=== PATIENT | male | born 1965 | race Caucasian/White ===

== ENCOUNTER 2016-07-29 17:50 | Emergency (ER) | payer OTHER ==
[2016-07-29 18:03] VITALS: BP 130/90; PULSE 73; TEMP 97.8; BMI 31.7
--- NOTE | 2016-07-29 19:09 | PDOC ---
History of Present Illness - General History Source: Patient Exam Limitations: No Limitations - History of Present Illness Initial Comments: 07/29/16 19:23 The patient is a 51 year old male, with a significant past medical history of HTN, who presents to the emergency department with cough, congestion, and fever (last known was 101.5) for about 3 weeks. He reports his cough is productive and is bringing up white phlegm. He reports going to his PCP, Ministerio, about 2- 3 weeks ago, and was prescribed zithromax for 7 days with initial alleviation of his symptoms. He reports after finishing his course of medication is symptoms gradually worsened over the past couple of weeks. He reports now also having mid back pain when takes deep breaths. He reports taking Advil (400mg) about an hour ago with mild alleviation of his symptoms. He denies headache and dizziness. He denies nausea, vomit, diarrhea and constipation. PAST SURGICAL HISTORY: No significant history. FAMILY HISTORY: No pertinent history. SOCIAL HISTORY: Patient lives with family and is employed. MEDICATIONS: Reviewed. ALLERGIES: As per nursing notes. ROS General: Yes fevers, no weakness, no weight loss HEENT: No change in vision. No sore throat,. No ear pain CardioVascular: No chest pain or shortness of breath Respiratory:Yes cough, No wheezing. Gastrointestinal: No nausea, vomiting, diarrhea or constipation. No rectal bleeding Genitourinary: No dysuria, hematuria, or frequency Musculoskeletal: Yes: Back pain. No joint or muscle pain or swelling Neurologic: No headache, vertigo, dizziness or loss of consciousness Psychiatric: No depression Skin: No rashes or easy bruising Endocrine: no increased thirst or abnormal weight change Allergic: no skin or latex allergy All other systems reviewed and normal Exam: General: Well-nourished well-developed individual, no acute distress HEENT: Throat: Tenderness to percussion over the maxillary sinuses. No tenderness over the frontal sinuses. Normal, tonsils normal, no erythema or exudate Neck: Supple, no meningeal signs, no lymphadenopathy Eyes: Pupils equal reactive and round, extraocular motion intact Chest: Nontender to palpation Cardiac: S1-S2 normal, regular rate and rhythm, no murmurs rubs or gallops Respiratory: Coarse breath sounds mid left sided chest posteriorly. Abdomen: Soft, nondistended, normal bowel sounds, nontender to palpation diffusely Extremities: Warm, dry, no cyanosis, clubbing, or edema Skin: No rashes Neuro: Alert and oriented x3, nonfocal exam, grossly intact, normal gait Psych: Normal mood and affect <Uriel Winkler - Last Filed: 07/29/16 20:26> - General History Source: Patient Exam Limitations: No Limitations - History of Present Illness Initial Comments: 07/29/16 20:12 A portion of this note was documented by scribe services under my direction. I have reviewed the details of the note, within reason, and agree with the documentation. The case summary and management plan written by me. Assessment and plan: This is a 51-year-old male who comes in complaining of approximately 3 weeks of sinus congestion and cough. Patient was given a Z-Keegan 2 weeks ago with some improvement in symptoms but sinus congestion and pain has persisted. Patient also complaining of fevers. Patient has appointment with his ENT doctor for tomorrow. Patient had a chest x-ray that was negative for any acute pathology infiltrate. Patient was given Zosyn for a presumptive sinusitis. Patient will follow-up with his ENT doctor tomorrow and patient was discharged. <Beltran Siddiqi I - Last Filed: 07/29/16 20:53> - General Chief Complaint: Respiratory Stated Complaint: COUGH & FEVER Time Seen by Provider: 07/29/16 17:59 Past History <Uriel Winkler - Last Filed: 07/29/16 20:26> - Past Medical History HTN: Yes - Psycho/Social/Smoking Cessation Hx Anxiety: No Suicidal Ideation: No Smoking Status: No Smoking History: Never smoked Have you smoked in the past 12 months: No Number of Cigarettes Smoked Daily: 0 Hx Alcohol Use: No Drug/Substance Use Hx: No Substance Use Type: None <Beltran Siddiqi I - Last Filed: 07/29/16 20:53> - Past Medical History Allergies/Adverse Reactions: Allergies Allergy/AdvReac Type Severity Reaction Status Date / Time amoxicillin trihydrate Allergy Mild Hives Verified 01/23/15 09:38 [From Augmentin] doxycycline Allergy Mild Hives Verified 07/29/16 18:03 potassium clavulanate Allergy Mild Hives Verified 01/23/15 09:38 [From Augmentin] levofloxacin [From Levaquin] AdvReac Verified 07/28/15 08:45 Home Medications: Ambulatory Orders Aspirin [ASA -] 81 mg PO DAILY 05/26/12 Verapamil HCl ER [Calan Sr -] 120 mg PO BID 05/26/12 *Physical Exam - Vital Signs Last Vital Signs Temp Pulse Resp BP Pulse Ox 97.8 F 73 16 130/90 97 07/29/16 17:58 07/29/16 17:58 07/29/16 17:58 07/29/16 17:58 07/29/16 17:58 <Uriel Winkler - Last Filed: 07/29/16 20:26> - Vital Signs Last Vital Signs Temp Pulse Resp BP Pulse Ox 97.8 F 73 16 130/90 97 07/29/16 17:58 07/29/16 17:58 07/29/16 17:58 07/29/16 17:58 07/29/16 17:58 <Beltran Siddiqi I - Last Filed: 07/29/16 20:53> ED Treatment Course - LABORATORY CBC & Chemistry Diagram: 07/29/16 19:40 07/29/16 19:40 <Uriel Winkler - Last Filed: 07/29/16 20:26> - LABORATORY CBC & Chemistry Diagram: 07/29/16 19:40 07/29/16 19:40 <Beltran Siddiqi I - Last Filed: 07/29/16 20:53> *DC/Admit/Observation/Transfer - Attestations Scribe Attestion: 07/29/16 19:20 Documentation prepared by Uriel Winkler, acting as registered medical assistant for Beltran Siddiqi MD. <Uriel Winkler - Last Filed: 07/29/16 20:26> - Discharge Dispostion Admit: No <Beltran Siddiqi I - Last Filed: 07/29/16 20:53> Diagnosis at time of Disposition: Sinusitis Qualifiers: Sinusitis location: maxillary Chronicity: acute Recurrence: recurrent Qualified Code(s): J01.01 - Acute recurrent maxillary sinusitis - Discharge Dispostion Disposition: HOME Condition at time of disposition: Good - Referrals Referrals: Efra Mandel MD [Primary Care Provider] - - Patient Instructions Additional Instructions: You were given a dose of Zosyn in the emergency room for your sinusitis/sinus infection. It is important that you keep your appointment with your ENT tomorrow when you see her ENT tomorrow tell him that you're given Zosyn and the I will let him determine what antibiotic he wants you to continue to take. Return to the emergency department immediately with ANY new, persistent or worsening symptoms. Continue any medications as previously prescribed by your physician. You should follow up with your primary doctor as soon as possible regarding today's emergency department visit. . Please make sure your doctor reviews the results of your emergency evaluation. Thank you for coming to the Emergency Department today for your care. It was a pleasure to see you today. Please note that your evaluation is INCOMPLETE until you follow-up with your doctor.
[2016-07-29] MEDS ORDERED: SODIUM CHLORIDE 1,000 ML IV ONE (19:46)
[2016-07-29] MEDS ORDERED: PIPERACILLIN/TAZOBACTAM 4.5 GM VIAL IVPB ONE (19:49)
[2016-07-29 19:55] LABS: BASOPHIL 0.6 % (0-2.0); EOSINOPHIL 6.4 % (0-4.5); MCH 27.2 pg (25.7-33.7); MEAN CELL VOLUME 82.6 fl (80-96); MEAN PLT VOLUME 8.2 fl (7.5-11.1); NEUTROPHILS 58.9 % (42.8-82.8); PLATELET COUNT 265 K/MM3 (134-434); RDW 13.6 % (11.9-15.9); WHITE BLOOD COUNT 4.1 K/mm3 (4.0-10.0)
[2016-07-29] MEDS ORDERED: PIPERACILLIN/TAZOB 4.5 GM 4.5 GM in DEXTROSE 5%-WATER - 100 ML IVPB ONE (20:21)
[2016-07-29 21:27] LABS: ANION GAP 10 (8-16); CALCIUM 8.2 mg/dL (8.5-10.1); CO2 26 mmol/L (21-32); CREATININE 0.7 mg/dL (0.7-1.3); GLUCOSE,RANDOM 86 mg/dL (74-106); SGOT/AST 12 U/L (15-37); SGPT/ALT 32 U/L (12-78)
[2016-07-29 21:28] LABS: ALK PHOS 83 U/L (45-117); BILIRUBIN,TOTAL 0.3 mg/dL (0.2-1.0)
== END 2016-07-29 21:17 | disposition home or self-care (01) ==
LOC: FER 17:50
PROC: 3E03329 Introduction of Other Anti-infective into Peripheral Vein, Percutaneous Approach (ICD-10-PCS; principal; 2016-07-29)
PROC: 3E0337Z Introduction of Electrolytic and Water Balance Substance into Peripheral Vein, Percutaneous Approach (ICD-10-PCS; 2016-07-29)
DX: J01.01 Acute recurrent maxillary sinusitis (principal); I10 Essential (primary) hypertension; Z79.82 Long term (current) use of aspirin
CPT/HCPCS: 36415; 71020-TC; 80053; 85025; 87040; 99282-25

== ENCOUNTER 2016-11-30 17:20 | Emergency (ER) | payer OTHER ==
[2016-11-30 17:29] VITALS: BP 144/96; PULSE 79; TEMP 97.8; BMI 34.0
--- NOTE | 2016-11-30 18:00 | PDOC ---
History of Present Illness - General History Source: Patient Exam Limitations: No Limitations - History of Present Illness Initial Comments: 11/30/16 18:35 The patient is a 51 year old male, with a significant past medical history of HTN, who presents to the emergency department with Right leg injury. The patient reports Weds falling through wooden steps on his patio, injuring his right leg. He reports since the injury his right leg has been swollen, bruised, and painful ranking his pain a 6/10 in pain intensity. He denies SOB, cough, hemoptysis, ADKINS and chest pain. No head injury, back pain/injury or other complaints. Allergies: NKA Past surgical history: None reported. Social History: Nonsmoker. Denies EtOH use and recreational drug use. Primary Care Physician: Dr.Louis Mandel <Uriel Winkler - Last Filed: 11/30/16 18:35> <Jagjit Tracy - Last Filed: 11/30/16 19:18> - General Chief Complaint: Injury Stated Complaint: RT LEG INJURY Time Seen by Provider: 11/30/16 17:38 Past History <Uriel Winkler - Last Filed: 11/30/16 18:35> - Past Medical History HTN: Yes - Psycho/Social/Smoking Cessation Hx Anxiety: No Suicidal Ideation: No Smoking Status: No Smoking History: Never smoked Have you smoked in the past 12 months: No Number of Cigarettes Smoked Daily: 0 Information on smoking cessation initiated: No Hx Alcohol Use: No Drug/Substance Use Hx: No Substance Use Type: None <Jagjit Tracy - Last Filed: 11/30/16 19:18> - Past Medical History Allergies/Adverse Reactions: Allergies Allergy/AdvReac Type Severity Reaction Status Date / Time amoxicillin trihydrate Allergy Mild Hives Verified 11/30/16 17:24 [From Augmentin] doxycycline Allergy Mild Hives Verified 11/30/16 17:24 potassium clavulanate Allergy Mild Hives Verified 11/30/16 17:24 [From Augmentin] levofloxacin [From Levaquin] AdvReac Verified 11/30/16 17:24 Home Medications: Ambulatory Orders Aspirin [ASA -] 81 mg PO DAILY 05/26/12 Verapamil HCl ER [Calan Sr -] 120 mg PO BID 05/26/12 Review of Systems - Review of Systems Able to Perform ROS?: Yes Comments:: 11/30/16 18:35 CONSTITUTIONAL: No reported: Fever, Chills, Diaphoresis, Generalized Weakness, Malaise, Loss of Appetite CARDIOVASCULAR: No reported: Chest Pain, Syncope, Palpitations, Irregular Heart Rate, Lightheadedness RESPIRATORY: No reported: Cough, Shortness of Breath, SOB with Exertion, GASTROINTESTINAL: No reported: Abdominal pain, Abdominal Distension, Nausea, Vomiting, Diarrhea, Constipation, Melena, Hematochezia MUSCULOSKELETAL: +Right leg pain and swelling. No reported: Myalgia, Arthralgia, Joint Swelling, Back pain, Neck Pain SKIN: No reported: Rash, Itching, Pallor HEMATOLOGIC/IMMUNOLOGIC: +bruising No reported: Easy Bleeding, Easy Bruising, Lymphadenopathy, Frequent infections NEUROLOGIC: No reported: Headache, Focal Weakness, Paresthesias, Vertigo, Lightheadedness, Unsteady Gait, Seizure, Mental Status Changes, Incontinence PSYCHIATRIC: No reported: Anxiety, Depression <Uriel Winkler - Last Filed: 11/30/16 18:35> *Physical Exam - Vital Signs Last Vital Signs Temp Pulse Resp BP Pulse Ox 97.8 F 79 18 144/96 99 11/30/16 17:20 11/30/16 17:20 11/30/16 17:20 11/30/16 17:20 11/30/16 17:20 - Physical Exam Comments: 11/30/16 18:35 GENERAL: The patient is awake, alert, and fully oriented, Nontoxic - in no acute distress. HEAD: Normocephalic, atraumatic. EYES: extraocular movements intact, sclera anicteric, conjunctiva clear. ENT: Normal voice, Moist mucous membranes. NECK: Normal range of motion, supple LUNGS: Breath sounds equal, clear to auscultation bilaterally. No wheezes, no rhonchi, no rales. HEART: Regular rate and rhythm, normal S1 and S2 without murmur, rub or gallop. ABDOMEN: Soft, nontender, normoactive bowel sounds. No guarding, no rebound. . No CVA tenderness EXTREMITIES: +edema of R calf, mild ecchymosis, mild tendernes to palpatin, neg homans sign, n/v intact, NEUROLOGICAL: No facial assymetry, Normal speech, PSYCH: Normal mood, normal affect. SKIN: Warm, Dry, normal turgor, <Uriel Winkler - Last Filed: 11/30/16 18:35> - Vital Signs Last Vital Signs Temp Pulse Resp BP Pulse Ox 97.8 F 79 18 144/96 99 11/30/16 17:20 11/30/16 17:20 11/30/16 17:20 11/30/16 17:20 11/30/16 17:20 <Jagjit Tracy - Last Filed: 11/30/16 19:18> ED Treatment Course - RADIOLOGY Radiology Studies Ordered: Category Date Time Status DUPLEX VASCUL US-1 LEG [US] Stat Ultrasound 11/30/16 17:59 Ordered <Jagjit Tracy - Last Filed: 11/30/16 19:18> Medical Decision Making - Medical Decision Making 11/30/16 19:16 no fx noted on xray no dvt on US suspect symptoms are contusion/resolving hematoma will dc with pmd fu, if persistent concert, repeat US in a few days return precuations were discussed A portion of this note was documented by scribe services under my direction. I have reviewed the details of the note, within reason, and agree with the documentation with the following case summary and management plan written by me I discussed the physical exam findings, ancillary test results and final diagnoses with the patient. I answered all of the patient's questions. The patient was satisfied with the care received and felt comfortable with the discharge plan and treatment plan. The patient will call their primary care physician within 24 hours to arrange follow-up and will return to the Emergency Department with any new, persistent or worsening symptoms. <Jagjit Tracy - Last Filed: 11/30/16 19:18> *DC/Admit/Observation/Transfer - Attestations Scribe Attestion: 11/30/16 18:36 Documentation prepared by Uriel Winkler, acting as medical accountant for Jagjit Tracy MD. <Uriel Winkler - Last Filed: 11/30/16 18:35> - Discharge Dispostion Admit: No <Jagjit Tracy - Last Filed: 11/30/16 19:18> Diagnosis at time of Disposition: Contusion of leg, right Qualifiers: Encounter type: initial encounter Qualified Code(s): S80.11XA - Contusion of right lower leg, initial encounter - Discharge Dispostion Disposition: HOME Condition at time of disposition: Improved - Referrals Referrals: Efra Mandel MD [Primary Care Provider] - - Patient Instructions Printed Discharge Instructions: DI for Contusion Additional Instructions: Return to the emergency department immediately with ANY new, persistent or worsening symptoms. You MUST call and follow up with your doctor in 5-7 days for further evaluation of your symptoms. Results were discussed with you. Please make sure your doctor reviews the results of your emergency evaluation. If you had any xrays during your visit, it was read preliminarily by myself, a Radiologist will review it and if there are any additional findings we will call you. Print Language: MOSOTHO
== END 2016-11-30 19:25 | disposition home or self-care (01) ==
LOC: FER 17:20
DX: S80.11XA Contusion of right lower leg, initial encounter (principal); W13.8XXA Fall from, out of or through other building or structure, initial encounter; Y93.89 Activity, other specified; Y92.008 Other place in unspecified non-institutional (private) residence as the place of occurrence of the external cause; I10 Essential (primary) hypertension
CPT/HCPCS: 73590-TC-RT; 93971-TC; 99282-25

== ENCOUNTER 2016-12-07 08:56 | Emergency (ER) | payer OTHER ==
[2016-12-07 09:13] VITALS: BP 131/96; PULSE 85; TEMP 97.5; BMI 34.0
--- NOTE | 2016-12-07 09:15 | PDOC ---
History of Present Illness - General Chief Complaint: Wound Stated Complaint: LEFT LEG WOUND Time Seen by Provider: 12/07/16 08:57 History Source: Patient Exam Limitations: No Limitations - History of Present Illness Initial Comments: 12/07/16 09:10 CHIEF COMPLAINT: Right leg injury with open wound HISTORY OF PRESENT ILLNESS: This is a 51-year-old man whose right leg went down between slats of a deck approximately 2 weeks ago. His right thigh knee and lower leg were all ecchymotic and swollen. The ecchymosis has now resolved, but he has a residual open area just below the right knee on the medial surface of the leg. The skin is open with some clear serous drainage. There is some small area of surrounding redness. The patient states that he put ice packs on the area directly on the skin with a wrap around it. This was the worst area of the injury. The ecchymosis has resolved. The localized redness is going down slowly. He applied Neosporin ointment to the area. REVIEW OF SYSTEMS: No fever or chills No red streaking up the leg No history of abnormal circulation Past History - Past Medical History Allergies/Adverse Reactions: Allergies Allergy/AdvReac Type Severity Reaction Status Date / Time amoxicillin trihydrate Allergy Mild Hives Verified 12/07/16 09:08 [From Augmentin] doxycycline Allergy Mild Hives Verified 12/07/16 09:08 potassium clavulanate Allergy Mild Hives Verified 12/07/16 09:08 [From Augmentin] levofloxacin [From Levaquin] AdvReac STOMACH Verified 12/07/16 09:08 UPSET Home Medications: Ambulatory Orders Aspirin [ASA -] 81 mg PO DAILY 05/26/12 Verapamil HCl ER [Calan Sr -] 120 mg PO BID 05/26/12 Sulfamethoxazole/Trimethoprim [Bactrim Ds -] 1 tab PO BID #14 tablet 12/07/16 Diabetes: No HTN: Yes - Psycho/Social/Smoking Cessation Hx Anxiety: No Suicidal Ideation: No Smoking Status: No Smoking History: Never smoked Have you smoked in the past 12 months: No Number of Cigarettes Smoked Daily: 0 Information on smoking cessation initiated: No Hx Alcohol Use: No Drug/Substance Use Hx: No Substance Use Type: None *Physical Exam - Vital Signs Last Vital Signs Temp Pulse Resp BP Pulse Ox 97.5 F L 85 20 131/96 98 12/07/16 08:56 12/07/16 08:56 12/07/16 08:56 12/07/16 08:56 12/07/16 08:56 - Physical Exam Comments: 12/07/16 09:11 GENERAL: [The patient is awake, alert, and fully oriented, in no acute distress. ] HEAD: [Normal with no signs of trauma.] EYES: [Pupils equal, round and reactive to light, extraocular movements intact, sclera anicteric, conjunctiva clear.] EXTREMITIES: [Normal range of motion, no edema.] NEUROLOGICAL: [Normal speech, normal gait.] PSYCH: [Normal mood, normal affect.] SKIN: There is a 4 cm area on the medial right lower leg just below the knee with superficial skin sloughing surrounded by localized erythema. There is slight induration. There is no fluctuance. There is no increased warmth. Medical Decision Making - Medical Decision Making 12/07/16 09:13 Patient presents with a 2 week old injury to the right leg. He had extensive ecchymosis and bruising which has now resolved. He had applied ice packs locally to the worst area, which now has localized erythema and a superficial area of skin sloughing. The discharge from the area is clear serous drainage. The differential diagnosis includes possible low-grade cellulitis, however, the most likely explanation is skin injury from direct application of ice packs to the area. The clear serous drainage without purulence goes against any significant infection. The slight induration without fluctuance is not suggestive of an abscess. The patient has history of sensitivity to multiple antibiotics with hives. While an antibiotic could be given, this does not appear to be a significant infection, and more likely a cold-induced skin injury from ice packs. I have advised him to apply topical bacitracin twice daily and do dressing changes. I have prescribed Bactrim twice a day, but advised him to hold off on starting it for 2-3 days and to avoid starting it if the area continues to improve with local bacitracin application. Patient further advised to return if he has fevers or increasing signs of infection with spreading redness or pain. He was advised of the options for treatment and is in agreement with the plan. *DC/Admit/Observation/Transfer Diagnosis at time of Disposition: Right leg injury Qualifiers: Encounter type: initial encounter Qualified Code(s): S89.91XA - Unspecified injury of right lower leg, initial encounter - Discharge Dispostion Disposition: HOME Condition at time of disposition: Stable Admit: No - Prescriptions Prescriptions: Sulfamethoxazole/Trimethoprim [Bactrim Ds -] 1 tab PO BID #14 tablet - Patient Instructions Additional Instructions: Today you were evaluated for an open wound on your right leg. There is no sign of a serious infection given that the drainage from the open area is clear. You are advised to wash the area with soap and water in the shower, rinse it well with clean water, dry it with a towel, apply a thin layer of bacitracin and then cover it with gauze and an bandage. Observe for the next 2-3 days for improvement. If the wound continues to improve, you should only use the bacitracin ointment twice daily with dressing changes. If there is any increase in redness or swelling, you can start the prescription for the Bactrim twice daily. Follow-up with your primary care physician in a few days if the wound is not healing. Return to the emergency department for any severe or progressive symptoms, including fever, progressive size of the reddened area, or green discharge from the wound.
== END 2016-12-07 09:29 | disposition home or self-care (01) ==
LOC: FER 08:56
DX: S89.91XD Unspecified injury of right lower leg, subsequent encounter (principal); W13.0XXD Fall from, out of or through balcony, subsequent encounter; Y93.89 Activity, other specified; Y92.096 Garden or yard of other non-institutional residence as the place of occurrence of the external cause
CPT/HCPCS: 99282-25

== ENCOUNTER 2017-04-10 09:06 | Emergency (ER) | payer OTHER ==
[2017-04-10 09:33] VITALS: BP 146/97; PULSE 90; TEMP 98.4; BMI 35.2
[2017-04-10] MEDS ORDERED: metroNIDAZOLE 250 MG TABLET PO ONE (09:34)
[2017-04-10] MEDS ORDERED: SULFAMETHOXAZOLE/TRIMETHOPRIM 800MG/160MG D.S. TABLET PO ONE (09:34)
--- NOTE | 2017-04-10 09:34 | PDOC ---
History of Present Illness - General Chief Complaint: Revisit,Wound Recheck Stated Complaint: WOUND CHECK RIGHT HAND CAT BITE Time Seen by Provider: 04/10/17 09:13 - History of Present Illness Initial Comments: 04/10/17 09:28 52 M with h/o HTN presents to ER for subjective chills and fevers after suffering cat bite to R hand 4 days ago. Pt states that he went to urgent care the day after he suffered the cat bite because his hand had become very swollen and painful. He was started on Cefdin, which he has been taking. The swelling and pain have subsided significantly over the past 3 days. However, pt states that last night he began to have subjective fevers, chills, and nausea. Pt took his temperature and states that it was 99.0. Pt otherwise states that his hand feels almost back to baseline, with only mild residual swelling and discomfort. He denies any spreading redness, denies worsening swelling or limitation in range of motion of fingers or wrist. Pt received a tetanus shot at urgent care. Pt states cat is his own, has had all its shots, and has not exhibited any strange or aggressive behavior. He filled out the required paperwork for animal bite on initial visit to urgent care. Also took cat to vet yesterday and had it evaluated. Past History - Past Medical History Allergies/Adverse Reactions: Allergies Allergy/AdvReac Type Severity Reaction Status Date / Time amoxicillin trihydrate Allergy Mild Hives Verified 12/07/16 09:08 [From Augmentin] doxycycline Allergy Mild Hives Verified 12/07/16 09:08 potassium clavulanate Allergy Mild Hives Verified 12/07/16 09:08 [From Augmentin] levofloxacin [From Levaquin] AdvReac STOMACH Verified 12/07/16 09:08 UPSET Home Medications: Ambulatory Orders Aspirin [ASA -] 81 mg PO DAILY 05/26/12 Verapamil HCl ER [Calan Sr -] 120 mg PO BID 05/26/12 Cefuroxime Axetil [Ceftin -] 500 mg PO Q12H 04/10/17 Metronidazole [Flagyl -] 500 mg PO TID #15 tablet 04/10/17 Sulfamethoxazole/Trimethoprim [Bactrim Ds -] 1 tab PO BID #10 tablet 04/10/17 Diabetes: No HTN: Yes - Immunization History TDAP Vaccination: Yes (04/07/2017) - Suicide/Smoking/Psychosocial Hx Smoking Status: No Smoking History: Never smoked Have you smoked in the past 12 months: No Number of Cigarettes Smoked Daily: 0 Hx Alcohol Use: No Drug/Substance Use Hx: No Substance Use Type: None Review of Systems - Review of Systems Comments:: 04/10/17 09:35 "GENERAL/CONSTITUTIONAL: + fever and chills. No weakness. HEAD, EYES, EARS, NOSE AND THROAT: No change in vision. No ear pain or discharge. No sore throat. CARDIOVASCULAR: No chest pain or shortness of breath. RESPIRATORY: No cough, wheezing, or hemoptysis. GASTROINTESTINAL: No nausea, vomiting, diarrhea or constipation. GENITOURINARY: No dysuria, frequency, or change in urination. MUSCULOSKELETAL: + Mild hand swelling and pain. No neck or back pain. SKIN: No rash NEUROLOGIC: No headache, vertigo, loss of consciousness, or change in strength/ sensation. ENDOCRINE: No increased thirst. No abnormal weight change. HEMATOLOGIC/LYMPHATIC: No anemia, easy bleeding, or history of blood clots. ALLERGIC/IMMUNOLOGIC: No hives or skin allergy. " *Physical Exam - Vital Signs Last Vital Signs Temp Pulse Resp BP Pulse Ox 98.4 F 90 15 146/97 97 04/10/17 09:12 04/10/17 09:12 04/10/17 09:12 04/10/17 09:12 04/10/17 09:12 - Physical Exam Comments: 04/10/17 09:36 "GENERAL: Awake, alert, and fully oriented, in no acute distress HEAD: No signs of trauma EYES: PERRLA, EOMI, sclera anicteric, conjunctiva clear ENT: Auricles normal inspection, hearing grossly normal, nares patent, oropharynx clear without exudates. Moist mucosa NECK: Nontender, no stepoffs, Normal ROM, supple, no lymphadenopathy, JVD, or masses LUNGS: Breath sounds equal, clear to auscultation bilaterally. No wheezes, and no crackles HEART: Regular rate and rhythm, normal S1 and S2, no murmurs, rubs or gallops ABDOMEN: Soft, nontender, normoactive bowel sounds. No guarding, no rebound. No masses NEUROLOGICAL: Cranial nerves II through XII intact. 5/5 strength and sensation in all extremities, Normal speech, normal gait EXTREMITIES: R hand with 2 small puncture wounds that are well healing, NO notable erythema, mild diffuse edema of hand extending to wrist. NORMAL active and passive range of motion of all digits, no pain with passive extension of flexor tendons, no signs of cellulitis ED Treatment Course - LABORATORY CBC & Chemistry Diagram: 04/10/17 09:35 04/10/17 09:35 Medical Decision Making - Medical Decision Making 04/10/17 09:38 52 M with fevers and chills after suffering cat bite to R hand 4 days ago. Hand appears to be healing well, with no signs of active infection. NO evidence of flexor tenosynovitis, no signs of cellulitis. Pt with mild edema to hand that he reports is improving. Pt with no regional lymphadenopathy to suggest cat scratch fever. There are no significant signs of local or systemic infection on exam. However, given subjective fevers and chills, pt may potentially be bacteremic. Given that pt has been on cefdin for 4 days and is still experiencing symptoms, I am changing his antibiotics to flagyl and bactrim (for pasturella as well as bartonella coverage). Pt has known allergies to augmentin and doxy. I will also send labs and blood cultures to test for susceptibility. Pt has been counseled on watching his cat for 10 days for changes in behavior and necessity for rabies ppx. - Labs, BCx - Bactrim, flagyl - F/u PMD 04/10/17 10:21 Pt given first dose of bactrim and flagyl in ER, observed for signs of allergic reaction. Pt asymptomatic, vitals normal, stable for DC. *DC/Admit/Observation/Transfer Diagnosis at time of Disposition: Cat bite of hand - Discharge Dispostion Disposition: HOME Condition at time of disposition: Good - Prescriptions Prescriptions: Sulfamethoxazole/Trimethoprim [Bactrim Ds -] 1 tab PO BID #10 tablet Metronidazole [Flagyl -] 500 mg PO TID #15 tablet - Referrals Referrals: Efra Mandel MD [Primary Care Provider] - Len Kate MD [Staff Physician] - - Patient Instructions Printed Discharge Instructions: DI for Puncture Wound Additional Instructions: Do not take the Cefdin any longer. Take the bactrim and flagyl as prescribed to treat your infection. Make an appointment with a hand surgeon to have your hand infection further evaluated. Hand infections have the potential to cause serious and debilitating complications. Call the number provided to make an appointment. If you experience worsening hand swelling, pain, redness, fevers, or any other concerning symptoms, return to the ER immediately. Watch your cat closely for the next week. If it begins to have any changes in behavior, you may need rabies prophylaxis, as rabies is a life threatening illness. - Attestations Physician Attestion: 04/10/17 10:19 I, Dr. Kenny Blue MD, attest that this document has been prepared under my direction and personally reviewed by me in its entirety. I further attest, that it accurately reflects all work, treatment, procedures and medical decision -making performed by me.
[2017-04-10] MEDS ORDERED: SULFAMETHOXAZOLE/TRIMETHOPRIM 800MG/160MG D.S. TABLET ONE (09:41)
[2017-04-10] MEDS ORDERED: metroNIDAZOLE 250 MG TABLET ONE (09:42)
[2017-04-10 09:45] LABS: BASOPHIL 0.6 % (0-2.0); EOSINOPHIL 6.2 % (0-4.5); MCH 27.9 pg (25.7-33.7); MCHC 33.2 g/dl (32.0-35.9); MEAN PLT VOLUME 8.6 fl (7.5-11.1); NEUTROPHILS 67.8 % (42.8-82.8); PLATELET COUNT 343 K/MM3 (134-434); RDW 13.9 % (11.9-15.9); WHITE BLOOD COUNT 5.9 K/mm3 (4.0-10.8)
[2017-04-10 10:05] LABS: ALBUMIN 4.1 g/dl (3.5-5.0); ALK PHOS 70 U/L (32-92); ANION GAP 8 (8-16); BILIRUBIN,TOTAL 0.3 mg/dl (0.2-1.0); CALCIUM 9.1 mg/dl (8.4-10.2); CO2 25 mmol/L (22-28); CREATININE 0.7 mg/dl (0.6-1.3); GLUCOSE,RANDOM 123 mg/dl (74-106); SGOT/AST 21 U/L (10-42); SGPT/ALT 33 U/L (10-40); TOT PROT 7.1 g/dl (6.4-8.3)
== END 2017-04-10 10:37 | disposition home or self-care (01) ==
LOC: SUPCPDRO 09:06 → FER 09:06
DX: Z48.00 Encounter for change or removal of nonsurgical wound dressing (principal)
CPT/HCPCS: 36415; 80053; 85025; 87040; 99281-25

== ENCOUNTER 2019-05-12 17:00 | Emergency (ER) | payer OTHER ==
[2019-05-12 17:11] VITALS: TEMP 97.8; BMI 32.3
--- NOTE | 2019-05-12 17:16 | PDOC ---
History of Present Illness - General Stated Complaint: LOW ABD PRESSURE, URGENCY IN URINATION Time Seen by Provider: 05/12/19 17:15 - History of Present Illness Initial Comments: 05/12/19 18:12 54yo male with hx of htn and dm presents for eval of sulfur smelling urine along with urinary freq. Pt was dx with b/l ear infections and a sinus infection on Tuesday by [facility]. Pt states he started to take cefdinir on tuesday. States that on tuesday he developed urinary freq- was up about 10x at night to urinate and noticed the foul smell to the urine. Denies dysuria. Pt c/o urgency, freq. Denies hesitancy. Denies back pain. No f/c. No ear pain today. States still with post nasal gtt. Denies cough. No cp/sob. No abd pain- but feels pressure down low in his abd. Denies testicular or penile pain. Denies discharge from the penis. Denies new sexual contacts or hx of STI/STD. Pt denies rashes. Denies assoc n/v/d. No cramping in his legs. Pt denies wolfe. Denies all other complaints other than nasal congestion and urinary complaints. Pt states he did take his BP meds today, but also started a medrol dose pack today for the sinus congestion. Pmhx: dm, htn pshx: anterior cervical fusion all: doxycycline, amox, levaquin meds: verapimil, metformin, cefdinir, prednisone Past History - Past Medical History Allergies/Adverse Reactions: Allergies Allergy/AdvReac Type Severity Reaction Status Date / Time amoxicillin trihydrate Allergy Mild Hives Verified 05/12/19 17:02 [From Augmentin] doxycycline Allergy Mild Hives Verified 05/12/19 17:02 potassium clavulanate Allergy Mild Hives Verified 05/12/19 17:02 [From Augmentin] levofloxacin [From Levaquin] AdvReac STOMACH Verified 05/12/19 17:02 UPSET Home Medications: Ambulatory Orders Aspirin [ASA -] 81 mg PO DAILY 05/26/12 Verapamil HCl ER [Calan Sr -] 120 mg PO BID 05/26/12 Cefdinir 600 mg PO DAILY 05/12/19 Metformin HCl [Glucophage] 500 mg PO BID 05/12/19 Prednisone mg PO ASDIR 05/12/19 COPD: No Diabetes: Yes (BORDERLINE DM) HTN: Yes - Immunization History TDAP Vaccination: (04/07/2017) - Psycho Social/Smoking Cessation Hx Smoking Status: No Smoking History: Never smoked Have you smoked in the past 12 months: No Number of Cigarettes Smoked Daily: 0 Information on smoking cessation initiated: No Hx Alcohol Use: No Drug/Substance Use Hx: No Substance Use Type: None Review of Systems - Review of Systems Able to Perform ROS?: Yes Is the patient limited Icelandic proficient: No Constitutional: No: Chills, Fever HEENTM: Yes: Nose Congestion. No: Eye Pain, Blurred Vision, Ear Pain, Ear Discharge, Throat Pain, Throat Swelling, Difficulty Swallowing Respiratory: No: Cough, Shortness of Breath Cardiac (ROS): No: Chest Pain ABD/GI: Yes: Other (pelvic pressure). No: Diarrhea, Nausea, Vomiting : Yes: Frequency, Urgency. No: Burning, Discharge, Hematuria, Testicular Mass , Testicular Swelling, Testicular Pain Musculoskeletal: No: Back Pain Integumentary: No: Rash Neurological: No: Headache, Numbness, Paresthesia, Weakness, Ataxia All Other Systems: Reviewed and Negative *Physical Exam - Vital Signs Last Vital Signs Temp Pulse Resp BP Pulse Ox 97.8 F 98 H 18 157/105 H 99 05/12/19 17:00 05/12/19 17:00 05/12/19 17:00 05/12/19 17:00 05/12/19 17:00 - Physical Exam General Appearance: Yes: Nourished, Appropriately Dressed. No: Apparent Distress HEENT: positive: EOMI, NORA, Normal Voice, Nasal Congestion, Other (TM normal b/ l - no effusions or erythema, no bulging, posterior pharynx with post nasal gtt , nares congested). negative: Pharyngeal Erythema, Tonsillar Exudate, Tonsillar Erythema, Rhinorrhea, TM Bulging, TM Dull, TM Erythema Neck: positive: Supple Respiratory/Chest: positive: Lungs Clear, Normal Breath Sounds. negative: Respiratory Distress Cardiovascular: positive: Regular Rhythm, Regular Rate, S1, S2. negative: Edema Gastrointestinal/Abdominal: positive: Soft, Tenderness (suprapubic). negative: Guarding, Rebound Musculoskeletal: positive: Normal Inspection. negative: CVA Tenderness Extremity: positive: Normal Capillary Refill, Normal Inspection, Normal Range of Motion. 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 Mccarthy 05/12/19 18:46 no elevated wbc h/h stable chem pending no uti pt pending ct pt signed out to the oncoming ED physician pending further eval. Discharge - Discharge Information Problems reviewed: Yes Clinical Impression/Diagnosis: Suprapubic discomfort Condition: Stable - Follow up/Referral Referrals: Joey Mccarthy MD [Primary Care Provider] - - Patient Discharge Instructions - Post Discharge Activity
[2019-05-12] MEDS ORDERED: ACETAMINOPHEN 1000 MG/100 ML VIAL (NON FORMULARY) IVPB ONE (17:36)
[2019-05-12] MEDS ORDERED: SODIUM CHLORIDE 0.9% 1000 ML INFUS.BAG IV ONE (17:36)
[2019-05-12] MEDS ORDERED: ACETAMINOPHEN INJECTION 100 ML IVPB ONE (17:58)
[2019-05-12 18:09] LABS: BASO % 0.2 % (0-2.0); HEMATOCRIT 46.5 % (35.4-49); HEMOGLOBIN 15.5 GM/dl (11.7-16.9); LYMPH % 11.2 % (8-40); MCH 28.9 pg (25.7-33.7); MCHC 33.4 g/dl (32.0-35.9); MEAN CELL VOLUME 86.7 fl (80-96); MEAN PLT VOLUME 8.3 fl (7.5-11.1); MONO % 2.6 % (3.8-10.2); PLATELET COUNT 390 K/MM3 (134-434); RBC 5.36 M/mm3 (4.00-5.60); RDW 13.4 % (11.9-15.9); WHITE BLOOD COUNT 8.5 K/mm3 (4.0-10.8)
[2019-05-12 18:39] LABS: EPITHELIAL CELLS RARE /hpf
[2019-05-12 18:46] LABS: ALBUMIN 4.1 g/dl (3.4-5.0); BILIRUBIN,TOTAL 0.5 mg/dl (0.2-1); CALCIUM 9.5 mg/dl (8.5-10); CREATININE 0.8 mg/dl (0.55-1.3); POTASSIUM 4.3 mmol/L (3.5-5.1); TOT PROT 7.5 g/dl (6.4-8.2)
[2019-05-12] MEDS ORDERED: KETOROLAC TROMETHAMINE 15 MG/ML VIAL IVPUSH ONE (18:54)
[2019-05-12] MEDS ORDERED: KETOROLAC TROMETHAMINE 15 MG/ML VIAL ONE (19:02)
[2019-05-12 21:10] VITALS: BP 150/87; PULSE 89
--- NOTE | 2019-05-12 21:15 | PDOC ---
*Physical Exam - Vital Signs Last Vital Signs Temp Pulse Resp BP Pulse Ox 97.8 F 98 H 18 157/105 H 99 05/12/19 17:00 05/12/19 17:00 05/12/19 17:00 05/12/19 17:00 05/12/19 17:00 ED Treatment Course - LABORATORY CBC & Chemistry Diagram: 05/12/19 18:00 05/12/19 18:00 - ADDITIONAL ORDERS Additional order review: Laboratory Results 05/12/19 05/12/19 18:00 18:00 Sodium 137 Potassium 4.3 Chloride 99 Carbon Dioxide 26 Anion Gap 12 BUN 11.0 Creatinine 0.8 Est GFR (CKD-EPI)AfAm 117.38 Est GFR (CKD-EPI)NonAf 101.27 Random Glucose 132 H Calcium 9.5 Magnesium 2.0 Total Bilirubin 0.5 AST 19 ALT 29 Alkaline Phosphatase 58 Total Protein 7.5 Albumin 4.1 Urine Color Yellow Urine Appearance Clear Urine pH 5.0 Urine Protein Negative Urine Glucose (UA) Negative Urine Ketones Negative Urine Blood Trace-intact Urine Nitrite Negative Urine Bilirubin Negative Urine Urobilinogen 0.2 Ur Leukocyte Esterase Negative Urine RBC 2-5 Urine WBC 0-2 Ur Transition Epith Cell Rare 05/12/19 18:00 RBC 5.36 MCV 86.7 MCHC 33.4 RDW 13.4 MPV 8.3 Neutrophils % 85.0 H D Lymphocytes % 11.2 D Monocytes % 2.6 L Eosinophils % 1.0 D Basophils % 0.2 - Medications Given in the ED: ED Medications Discontinued Medications Generic Name Dose Route Start Last Admin Trade Name Freq PRN Reason Stop Dose Admin Acetaminophen 1,000 mg 05/12/19 17:36 05/12/19 18:00 Ofirmev Injection - IVPB 05/12/19 17:37 1,000 mg ONCE ONE Administration Ketorolac Tromethamine 15 mg 05/12/19 18:54 05/12/19 19:15 Toradol Injection - IVPUSH 05/12/19 18:55 15 mg ONCE ONE Administration Sodium Chloride 1,000 ml 05/12/19 17:36 05/12/19 18:00 Normal Saline - IV 05/12/19 17:37 1,000 ml ONCE ONE Administration ED Progress Note - Progress Note Progress Note: Care of this patient received from Dr. Boudreaux. This 54-year-old man presents with few day history of foul-smelling (sulfur) urine, urinary frequency and suprapubic discomfort. There is no dysuria. Patient has a history of prostatitis a few years ago but symptoms then were very different. Urinalysis shows 25 RBC/hpf and CBC/chemistry profile are essentially normal. Renal stone protocol CT performed to evaluate for evidence of stones or other acute pathology. CT preliminary findings by Imaging special weapons and tactics officer: No evidence of ureteral obstruction ; suggestion of a 1 mm hyperattenuation in mid left ureter but no hydroureter ureter or hydronephrosis. Study is otherwise essentially unremarkable. Results discussed with the patient. In light of the patient's significant discomfort and urinary frequency, will empirically begin antibiotic course to treat UTI, pending results of urine culture and sensitivity. Patient has had history of side effect (diarrhea/ abdominal pain) after Levaquin but no true allergic symptoms. He has taken Cipro in the past without side effects or allergic symptoms. The patient will finish his course of Cefdinir tonight and start Cipro 500 mg twice a day tomorrow. The patient has been followed by Dr. Serrano of the urology staff. He should call the office on Tuesday, May 14 to arrange follow-up within the next few days. He should return to the emergency room if he has worsening pain, frequency or develops dysuria/fever/vomiting Discharge - Discharge Information Problems reviewed: Yes Clinical Impression/Diagnosis: Suprapubic discomfort Condition: Stable Disposition: HOME - Additional Discharge Information Prescriptions: Ciprofloxacin [Cipro (Restricted To Id)] 500 mg PO Q12H #14 tablet - Follow up/Referral Referrals: Joey Mccarthy MD [Primary Care Provider] - Kemal Serrano MD [Staff Physician] - 3 days - Patient Discharge Instructions Patient Printed Discharge Instructions: DI for Dysuria -- Adult Additional Instructions: continue to drink plenty of fluids Cipro 500mg twice a day starting tomorrow Return to ER if you have severe pain, fever or vomiting Follow-up with Dr. Serrano within the next 3 to 4 days - Post Discharge Activity
== END 2019-05-12 21:19 | disposition home or self-care (01) ==
LOC: FER 17:00
PROC: 3E033NZ Introduction of Analgesics, Hypnotics, Sedatives into Peripheral Vein, Percutaneous Approach (ICD-10-PCS; principal; 2019-05-12)
PROC: 3E0333Z Introduction of Anti-inflammatory into Peripheral Vein, Percutaneous Approach (ICD-10-PCS; 2019-05-12)
DX: R10.30 Lower abdominal pain, unspecified (principal); R73.03 Prediabetes; I10 Essential (primary) hypertension; Z79.82 Long term (current) use of aspirin; Z79.84 Long term (current) use of oral hypoglycemic drugs; Z88.8 Allergy status to other drugs, medicaments and biological substances
CPT/HCPCS: 36415; 74176-TC; 80053; 81003; 81015; 83735; 85025; 87086; 99284-25; J0131; J7030

== ENCOUNTER 2023-08-10 04:36 | Day surgery (SDC) | payer OTHER ==
[2023-08-04 15:00] VITALS: BMI 32.1
[2023-08-10 10:54] VITALS: TEMP 98
[2023-08-10 11:05] VITALS: BP 106/70; PULSE 68; RESP 16
== END 2023-08-10 11:15 | disposition home or self-care (01) ==
LOC: JASU-ENDO 04:36
PROVIDERS: ATTEND Internal Medicine Gastroenterology
PROC: 0DBL8ZX Excision of Transverse Colon, Via Natural or Artificial Opening Endoscopic, Diagnostic (ICD-10-PCS; principal; 2023-08-10 10:00)
DX: Z12.11 Encounter for screening for malignant neoplasm of colon (principal); D12.3 Benign neoplasm of transverse colon; K64.8 Other hemorrhoids; Z86.010 Personal history of colon polyps
CPT/HCPCS: 82962

== ENCOUNTER 2023-10-06 08:29 | Day surgery (SDC) | payer OTHER ==
[2023-09-28 16:14] VITALS: BMI 32.1
[2023-10-06] MEDS ORDERED: EPINEPHrine 1:1,000 1,000 MCG/ML ML ONE (09:55)
[2023-10-06] MEDS ORDERED: DEXAMETHASONE SOD PHOSPHATE 4 MG/1 ML VIAL ONE (10:34)
[2023-10-06] MEDS ORDERED: PROPOFOL 40 ML ONE (10:34)
[2023-10-06] MEDS ORDERED: ONDANSETRON 4 MG/2 ML VIAL ONE (10:34)
[2023-10-06] MEDS ORDERED: LIDOCAINE HCL/PF 2% SDV 5ML VIAL ONE (10:34)
[2023-10-06] MEDS ORDERED: MIDAZOLAM HCL 2 MG/2 ML SINGLE DOSE VIAL ONE (10:41)
[2023-10-06] MEDS ORDERED: DEXAMETHASONE SOD PHOSPHATE/PF 10 MG/ML SDV ONE (10:41)
[2023-10-06] MEDS ORDERED: ROPIVACAINE HCL 0.5% 30ML VIAL ONE (10:42)
[2023-10-06] MEDS ORDERED: ROCURONIUM BROMIDE 50 MG/5 ML SYRINGE ONE (11:09)
[2023-10-06] MEDS ORDERED: ceFAZolin SODIUM 1 GM VIAL ONE (11:45)
[2023-10-06] MEDS ORDERED: TRANEXAMIC ACID 1000 MG/10 ML VIAL ONE (11:45)
[2023-10-06] MEDS ORDERED: SUGAMMADEX SODIUM 200 MG/2 ML VIAL ONE (13:24)
[2023-10-06] MEDS ORDERED: oxyCODONE HCL 5 MG TABLET PO PRN ×2 (13:27)
[2023-10-06] MEDS ORDERED: ONDANSETRON 4 MG/2 ML VIAL IVPUSH PRN (13:27)
[2023-10-06] MEDS ORDERED: LACTATED RINGERS SOLUTION 1,000 ML IV SCH (13:30)
[2023-10-06] MEDS ORDERED: ACETAMINOPHEN INJECTION 100 ML IVPB ONE (14:34)
[2023-10-06] MEDS: ACETAMINOPHEN 1000 MG/100 ML BAG IVPB ONE (14:35)
[2023-10-06 17:08] VITALS: RESP 20; TEMP 97.1
[2023-10-06 17:17] VITALS: BP 115/70; PULSE 88
== END 2023-10-06 17:00 | disposition home or self-care (01) ==
LOC: FASU 08:29
PROVIDERS: ATTEND Orthopaedic Surgery Sports Medicine
PROC: 0RBK4ZZ Excision of Left Shoulder Joint, Percutaneous Endoscopic Approach (ICD-10-PCS; principal; 2023-10-06 12:00)
PROC: 0RS Upper Joints, Reposition (ICD-10-PCS; 2023-10-06 12:00)
DX: M75.122 Complete rotator cuff tear or rupture of left shoulder, not specified as traumatic (principal); M75.22 Bicipital tendinitis, left shoulder; M75.02 Adhesive capsulitis of left shoulder; M65.812 Other synovitis and tenosynovitis, left shoulder; S43.432A Superior glenoid labrum lesion of left shoulder, initial encounter; X58.XXXA Exposure to other specified factors, initial encounter; Y93.9 Activity, unspecified; Y92.9 Unspecified place or not applicable
CPT/HCPCS: 29823; 29826; 29827; 29828; C1713; 82962; 94760; J0131

== ENCOUNTER 2025-03-08 11:47 | Emergency (ER) | payer OTHER ==
[2025-03-08 12:05] VITALS: PULSE 84; RESP 18; TEMP 97.9; BMI 32.1
[2025-03-08] MEDS: CIPROFLOXACIN 400 MG/D5W 400 MG/200 ML IVPB IVPB ONE (12:30)
[2025-03-08] MEDS ORDERED: CIPROFLOXACIN 400 MG/D5W 400 MG/200 ML IVPB IVPB ONE (12:55)
[2025-03-08 12:59] LABS: ABSOLUTE IMMATURE GRANULOCYTES 0.01 x10^3/uL (0.0-0.031); BASOPHILS # 0.02 x10^3/uL (0.01-0.08); EOSINOPHIL % 2.1 % (0.8-7.0); EOSINOPHILS # 0.13 x10^3/uL (0.04-0.54); MCHC 33.3 g/dl (32.3-36.5); MEAN CELL VOLUME 84.6 fl (79.0-92.2); MEAN PLT VOLUME 10.3 fl (9.4-12.4); MONOCYTE # 0.52 x10^3/uL (0.30-0.82); MONOCYTE % 8.4 % (5.3-12.2); RDW 14.8 % (12.2-16.1)
[2025-03-08 13:10] LABS: ALK PHOS 60.0 U/L (45-117); CO2 24.0 mmol/L (21-32); CREATININE 1.0 mg/dl (0.6-1.3); GLUCOSE,RANDOM 209.0 mg/dl (74-106); SGOT/AST 11.0 U/L (15-37); SGPT/ALT 17.0 U/L (7-52); TOT PROT 7.1 g/dl (6.4-8.2)
[2025-03-08 15:21] VITALS: BP 122/95
[2025-03-08 16:03] LABS: HIV INTERPRETATION NEGATIVE (NEGATIVE)
[2025-03-08 16:04] LABS: HCV DIAGNOSTIC IN-HOUSE W/RFLX NON-REACTIVE (NONREACTIVE)
== END 2025-03-08 15:20 | disposition home or self-care (01) ==
LOC: FER 11:47
DX: N41.9 Inflammatory disease of prostate, unspecified (principal); R30.0 Dysuria; R39.15 Urgency of urination; R10.30 Lower abdominal pain, unspecified
CPT/HCPCS: 36415; 76775-TC; 80053; 81003; 81015; 85025; 86803; 87040; 87086; 87389; 99285-25